=== PATIENT | male | born 1980 | race Native Hawaiian/Other Pacific Islander ===

== ENCOUNTER 2018-10-10 09:10 | Emergency (ER) | payer OTHER ==
[~2018-10-10] VITALS: Ht 188 cm; Wt 113.4 kg
[2018-10-10] MEDS ORDERED: AMOXICILLIN 50500 MG PO (09:43)
[2018-10-10 09:52] VITALS: BP 112/84
== END 2018-10-10 09:52 | disposition home or self-care (01) ==
LOC: M.ERS 09:10
DX: J32.0 Chronic maxillary sinusitis (principal); J32.1 Chronic frontal sinusitis

== ENCOUNTER 2019-09-14 21:45 | Emergency (ER) | payer OTHER ==
[~2019-09-14] VITALS: Ht 188 cm; Wt 117.9 kg
[~2019-09-14 21:45] MED LIST: AMOXICILLIN 50500 MG PO
[2019-09-14] MEDS ORDERED: CLARITIN10 MG PO (21:56)
[2019-09-14] MEDS ORDERED: FLONASE 0.05%50 MCG NARES (21:56)
[2019-09-14] MEDS ORDERED: KEFLEX500 M1 PO (22:03)
[2019-09-14 22:45] VITALS: BP 141/70
== END 2019-09-14 22:46 | disposition home or self-care (01) ==
LOC: M.ERS 21:45
DX: S91.331A Puncture wound without foreign body, right foot, initial encounter (principal); W22.8XXA Striking against or struck by other objects, initial encounter; Y93.89 Activity, other specified; Y92.89 Other specified places as the place of occurrence of the external cause; Y99.8 Other external cause status

== ENCOUNTER 2020-04-21 11:26 | Inpatient (IN) | payer OTHER ==
[~2020-04-21] VITALS: Ht 188 cm; Wt 113.1 kg
[~2020-04-21 11:26] MED LIST changes: +CLARITIN10 MG PO; +FLONASE 0.05%50 MCG NARES; +KEFLEX500 M1 PO
[2020-04-21 11:39] VITALS: BP 147/99
[2020-04-21] MEDS ORDERED: PROBIOTIC1 EAC7 PO (11:48)
[2020-04-21 12:19] LABS: ABSOLUTE EOSINOPHILS 0.3 thou/uL (0.0-0.7); ABSOLUTE LYMPHOCYTES 1.2 thou/uL (0.8-5.3); ABSOLUTE MONOCYTES 0.7 thou/uL (0.0-1.2); ABSOLUTE NEUTROPHILS 7.2 thou/uL (1.6-8.1); BASOPHILS 0.5 %; EOSINOPHILS 3.2 %; HEMATOCRIT 42.4 % (42.0-52.0); HEMOGLOBIN 14.5 gm/dL (14.0-18.0); LYMPHOCYTES 12.4 %; MCH 28.9 pg (26.0-34.0); MCHC 34.2 g/dL (28.0-37.0); MCV 84.4 fL (80.0-100.0); MONOCYTES 7.9 %; MPV 8.4 fl. (7.2-11.1); NUCLEATED RBCS 0 /100WBC; PLATELET COUNT* 368 thou/uL (150-400); RBC 5.02 mil/uL (4.50-6.00); RDW-CV 13.3 % (10.5-14.5); WBC 9.4 thou/uL (4.0-11.0)
[2020-04-21 12:26] LABS: CALCIUM 7.9 mg/dL (8.5-10.1); POTASSIUM 3.3 mmol/L (3.5-5.1)
[2020-04-21 12:29] LABS: APTT 27.2 Seconds (25.0-31.3); INR 1.1; PROTIME 11.4 Seconds (9.20-11.50)
[2020-04-21 12:37] LABS: ALBUMIN 2.5 g/dL (3.4-5.0); TOTAL BILIRUBIN 2.3 mg/dL (<0.1-1.0); TOTAL PROTEIN 7.9 g/dL (6.4-8.2)
[2020-04-21 13:22] LABS: BE 1.8 mmol/L (-2 to +3); PCO2 34.9 mmHg (35.0-45.0); PO2 120.3 mmHg (75.0-100.0); pH 7.472 (7.340-7.450)
--- NOTE | 2020-04-21 14:52 | EKG ---
[place] [address] ELECTROCARDIOGRAM REPORT Name: MARCO GARDINER ESTELITA Room: [facility]7 ADM IN 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: : 1980 Requested By: Ronan Otero Order Number: [id number] MD: Victor M Lizarraga Measurements Intervals [place] Rate: 103 P: 32 OK: 148 QRS: 29 QRSD: 100 T: 10 QT: 368 QTc: 482 Interpretive Statements Sinus tachycardia Borderline T abnormalities, anterior leads Borderline prolonged QT interval Baseline wander in lead(s) V1,V6 No previous ECG available for comparison Electronically Signed On 04-21-2020 14:52:24 [employer] by Victor M Lizarraga [email or web address] <ELECTRONICALLY SIGNED> By: Victor M Lizarraga MD, [facility] 04/21/20 1452 1156 1156 Victor M Lizarraga MD, [facility] /EPI
[2020-04-21 15:47] VITALS: BP 132/92
[2020-04-21] MEDS ORDERED: MELOXICAM15 MG PO (16:02)
[2020-04-21] MEDS ORDERED: IPRATROPIU0.2 MG/1 M INH (16:02)
[2020-04-21] MEDS ORDERED: AUGMENTIN 875-1 EACH PO (16:03)
[2020-04-21 16:17] VITALS: BP 150/93
[2020-04-21 17:05] LABS: INFLUENZA A ANTIGEN Negative (Negative); INFLUENZA B ANTIGEN Negative (Negative)
[2020-04-21 20:41] VITALS: BP 140/94
[2020-04-22] VITALS: BP 133/91
[2020-04-22 04:00] VITALS: BP 170/102
[2020-04-22 05:12] LABS: ABSOLUTE LYMPHOCYTES 1.3 thou/uL (0.8-5.3); ABSOLUTE MONOCYTES 0.6 thou/uL (0.0-1.2); ABSOLUTE NEUTROPHILS 7.1 thou/uL (1.6-8.1); BASOPHILS 0.1 %; EOSINOPHILS 0.1 %; HEMATOCRIT 40.3 % (42.0-52.0); HEMOGLOBIN 13.7 gm/dL (14.0-18.0); LYMPHOCYTES 14.8 %; MCH 28.8 pg (26.0-34.0); MCHC 34.1 g/dL (28.0-37.0); MCV 84.4 fL (80.0-100.0); MONOCYTES 6.6 %; MPV 8.4 fl. (7.2-11.1); NUCLEATED RBCS 0 /100WBC; PLATELET COUNT* 390 thou/uL (150-400); POLYS 78.4 %; RBC 4.77 mil/uL (4.50-6.00); RDW-CV 13.5 % (10.5-14.5); WBC 9.1 thou/uL (4.0-11.0)
[2020-04-22 05:44] LABS: ALBUMIN 2.2 g/dL (3.4-5.0); CALCIUM 7.9 mg/dL (8.5-10.1); CREATININE 0.8 mg/dL (0.6-1.3); MAGNESIUM 2.5 mg/dL (1.8-2.4); PHOSPHORUS* 3.8 mg/dL (2.5-4.9); TOTAL BILIRUBIN 1.5 mg/dL (<0.1-1.0); TOTAL PROTEIN 7.5 g/dL (6.4-8.2)
[2020-04-22 08:02] VITALS: BP 141/96
[2020-04-22 13:08] VITALS: BP 145/87
[2020-04-22 19:30] VITALS: BP 135/79
[2020-04-22 21:00] VITALS: BP 149/90
[2020-04-23] VITALS (7 sets, daily range): BP systolic 119–142; BP diastolic 67–93
[2020-04-23 05:03] LABS: HEMATOCRIT 40.4 % (42.0-52.0); HEMOGLOBIN 13.6 gm/dL (14.0-18.0); MCH 28.9 pg (26.0-34.0); MCHC 33.6 g/dL (28.0-37.0); MCV 85.9 fL (80.0-100.0); MPV 8.8 fl. (7.2-11.1); RBC 4.71 mil/uL (4.50-6.00); RDW-CV 13.2 % (10.5-14.5); WBC 11.4 thou/uL (4.0-11.0)
[2020-04-23 05:14] LABS: INR 1.1; PROTIME 11.7 Seconds (9.20-11.50)
[2020-04-23 05:24] LABS: ALBUMIN 2.3 g/dL (3.4-5.0); CREATININE 0.8 mg/dL (0.6-1.3); MAGNESIUM 2.6 mg/dL (1.8-2.4); POTASSIUM 4.3 mmol/L (3.5-5.1); TOTAL BILIRUBIN 0.9 mg/dL (<0.1-1.0); TOTAL PROTEIN 7.3 g/dL (6.4-8.2)
[2020-04-23 05:34] LABS: APTT 80.6 Seconds (25.0-31.3)
[2020-04-24 04:00] VITALS: BP 132/89
[2020-04-24 04:47] LABS: HEMATOCRIT 41.2 % (42.0-52.0); HEMOGLOBIN 14.1 gm/dL (14.0-18.0); MCHC 34.1 g/dL (28.0-37.0); MPV 8.4 fl. (7.2-11.1); RBC 4.85 mil/uL (4.50-6.00); RDW-CV 13.2 % (10.5-14.5); WBC 9.4 thou/uL (4.0-11.0)
[2020-04-24 05:17] LABS: ALBUMIN 2.6 g/dL (3.4-5.0); CALCIUM 8.4 mg/dL (8.5-10.1); CREATININE 0.9 mg/dL (0.6-1.3); MAGNESIUM 2.5 mg/dL (1.8-2.4); POTASSIUM 4.3 mmol/L (3.5-5.1); TOTAL BILIRUBIN 0.9 mg/dL (<0.1-1.0); TOTAL PROTEIN 7.7 g/dL (6.4-8.2)
[2020-04-24 07:44] VITALS: BP 147/96
[2020-04-24 11:30] VITALS: BP 130/79
[2020-04-24 16:00] VITALS: BP 125/78
[2020-04-25] VITALS: BP 133/88
[2020-04-25 00:08] VITALS: BP 134/63
[2020-04-25 05:59] VITALS: BP 116/74
[2020-04-25 07:06] LABS: HEMATOCRIT 42.3 % (42.0-52.0); HEMOGLOBIN 14.5 gm/dL (14.0-18.0); MCHC 34.2 g/dL (28.0-37.0); MCV 84.7 fL (80.0-100.0); MPV 8.2 fl. (7.2-11.1); RDW-CV 13.1 % (10.5-14.5); WBC 7.8 thou/uL (4.0-11.0)
[2020-04-25 07:38] LABS: CALCIUM 8.8 mg/dL (8.5-10.1); CREATININE 1.1 mg/dL (0.6-1.3); MAGNESIUM 2.6 mg/dL (1.8-2.4); POTASSIUM 4.2 mmol/L (3.5-5.1)
[2020-04-25] MEDS ORDERED: CEFDINIR300 MG PO (08:58)
[2020-04-25] MEDS ORDERED: PREDNISONE 10 M10 M1 PO (08:58)
[2020-04-25] MEDS ORDERED: ELIQUIS5 MG PO (08:58)
[2020-04-25 12:04] VITALS: BP 130/75
[2020-04-25 14:33] VITALS: BP 130/75
--- NOTE | 2020-04-25 14:50 | CON ---
[address] [address] CONSULTATION Name: MARCO GARDINER Room: [address] IN .R.#: [id number] Admission: 04/21/20 Attend Phys: Shahid Almonte, Discharge: Date of : 84 Report #: [id number] THIS REPORT FOR: cc: YUNIOR ESCOBAR KEVIN ~ Pervez, Adeel MD DATE OF SERVICE: 04/21/2020 CONSULTATION REQUESTED BY: Shahid Almonte MD INDICATION FOR CONSULTATION: Acute respiratory failure and hypoxemic. HISTORY OF PRESENT ILLNESS: This is a 39 years old gentleman; past medical history includes a history of bronchial asthma as well as allergic rhinitis. The patient has no known history of smoking. The patient has now been sick since the beginning of April. He has been having increasing shortness of breath. The patient, according to the admission H and P, was tested for COVID-19 and was positive on 04/14/2020. The patient had been monitoring his O2 saturations at home and states that these dropped to the mid 80s, which is the reason that he eventually came to the Emergency Room. He also has had cough; there is not much sputum; there is no chest pain. He has had significant chills. He did not record a fever at home. He says he has had upper respiratory complaints, including nasal congestion and headaches. He says that he felt that he had respiratory distress earlier and was wheezing. He, while not having chest pain at this time, did previously have pain with respirations. REVIEW OF SYSTEMS: For 12 points is negative except as mentioned above. PAST MEDICAL HISTORY: Bronchial asthma, hernia surgery, hypertension, sinusitis, allergic rhinitis. CURRENT MEDICATIONS: List in [employer], reviewed. HOME MEDICATIONS: List in [employer], reviewed. Note that he received either amoxicillin or Augmentin recently at home. FAMILY HISTORY: No known family history. ALLERGIES: HE HAS SEASONAL ALLERGIES. There are no known drug allergies. PHYSICAL EXAMINATION: GENERAL: He was alert, awake and oriented; does not appear to be in any distress; however, he is saturating 93% and has been on 3.5-4 liters of oxygen. Note that the patient had an O2 saturation initially recorded at 80% [place] [address] CONSULTATION Name: LAURENKVNGKAYLEEMARCO Room: [address] IN [facility]#: [id number] Admission: 04/21/20 Attend Phys: Shahid Almonte, Discharge: Date of : 84 Report #: [id number] air. He previously has not been on supplemental oxygen at home. VITAL SIGNS: He has a pulse of 82 and a blood pressure of 140/94. His respiratory rate is 16. His temperature is 37.1. He has been afebrile since admission. HEENT: Head is normocephalic and atraumatic. NECK: Does not show raised JVP. CHEST: Clear to auscultation. HEART: Regular, no murmur. ABDOMEN: Soft and nontender. EXTREMITIES: Lower extremities: No edema and no calf tenderness. LABORATORY DATA: The patient's CTA chest does show nonocclusive peripheral pulmonary emboli in addition to extensive infiltrates consistent with COVID-19 pneumonia. There is some fatty liver as well. [facility] and this is reviewed. Note that the patient's COVID-19 antigen is negative, but he is reported to have tested positive at home. ASSESSMENT AND PLAN: 1. Acute hypoxemic respiratory failure secondary to COVID-19. Recommend watching the patient closely and titrating oxygen as below. I am starting him on steroids as well as schedule albuterol. He has a history of bronchial asthma and therefore if he worsens, I recommend having a low threshold of moving him to the COVID area, so that he could be started on nebulized bronchodilators. 2. COVID-19. The patient is reported to have had a positive test outpatient on 04/14/2020. Therefore, I agree with dexamethasone. In fact, I increased the dose. His LFTs are elevated, so still the potential benefit of giving him remdesivir appears to outweigh risks, and therefore, I started the remdesivir as well. Note that his LFTs will need to be watched closely while he is on remdesivir. Should they continue to rise, we may need to discontinue remdesivir. I will also go ahead and give him 1 unit of convalescent plasma tonight. I recommend reevaluating; if he is not significantly better, I recommend giving him 1 more unit of convalescent plasma tomorrow morning. 3. Pulmonary infiltrates. Certainly he may have a secondary bacterial infection as well. Therefore, I agree with broad-spectrum antibiotics as currently ordered. Various cultures and serologies are ordered. 4. Bronchial asthma and allergic rhinitis. He did not appear to be actively bronchospastic. Still if he is not better by tomorrow morning, then I suggest considering moving him to the COVID area, so that he could be given nebulized bronchodilators. 5. Acute pulmonary emboli. He is on IV heparin drip. This could be switched over to full-dose Lovenox soon. We will plan a repeat CTA chest in 3 months for followup. 6. Mild rhabdomyolysis. There is elevation in CPK. The patient's BUN, however, is on the lower side and creatinine is normal. ProBNP is not elevated. [address] [address] CONSULTATION Name: MARCO GARDINER Room: [address] IN .R.#: [id number] Admission: 04/21/20 Attend Phys: Shahid Almonte, Discharge: Date of : 84 Report #: [id number] We will need to watch his fluid status closely. I did cautiously order 1 liter of normal saline at 50 as the CPK is elevated. Watch his O2 saturations and CPK. If his O2 saturations worsen, discontinue IV fluids and consider giving him Lasix. 7. Elevated liver function tests. Discussion as above. He is on remdesivir. Watch LFTs closely. Thanks for this consultation. <ELECTRONICALLY SIGNED> By: Darryl Rangel MD 04/25/20 1450 2212 [id number] Rangel MD /nt
[2020-04-25 15:53] VITALS: BP 130/75
== END 2020-04-25 18:26 | disposition home health service (06) | DRG 177 ==
LOC: M.ERS 11:26 → M.TBA-ER 12:58 → M.ORTHSURG 12:58
PROVIDERS: Family Medicine; Internal Medicine; Internal Medicine Critical Care Medicine; Physician Assistant; ADMIT Family Medicine; ATTEND Family Medicine
PROC: XW033E5 Introduction of Remdesivir Anti-infective into Peripheral Vein, Percutaneous Approach, New Technology Group 5 (ICD-10-PCS; 2020-04-21)
PROC: XW13325 Transfusion of Convalescent Plasma (Nonautologous) into Peripheral Vein, Percutaneous Approach, New Technology Group 5 (ICD-10-PCS; principal; 2020-04-23)
DX: U07.1 COVID-19 (principal); J12.89 Other viral pneumonia; J96.01 Acute respiratory failure with hypoxia; I26.99 Other pulmonary embolism without acute cor pulmonale; M62.82 Rhabdomyolysis; K76.0 Fatty (change of) liver, not elsewhere classified; E66.01 Morbid (severe) obesity due to excess calories; E87.6 Hypokalemia; I10 Essential (primary) hypertension; Z79.899 Other long term (current) drug therapy; Z68.32 Body mass index [BMI] 32.0-32.9, adult; Z23 Encounter for immunization

== ENCOUNTER 2021-03-15 01:41 | Emergency (ER) | payer OTHER ==
[~2021-03-15] VITALS: Ht 188 cm; Wt 113.4 kg
[~2021-03-15 01:41] MED LIST changes: +AUGMENTIN 875-1 EACH PO; +CEFDINIR300 MG PO; +ELIQUIS5 MG PO; +IPRATROPIU0.2 MG/1 M INH; +MELOXICAM15 MG PO; +PREDNISONE 10 M10 M1 PO; +PROBIOTIC1 EAC7 PO
[2021-03-15 04:38] LABS: ABSOLUTE EOSINOPHILS 0.2 thou/uL (0.0-0.7); ABSOLUTE LYMPHOCYTES 2.3 thou/uL (0.8-5.3); ABSOLUTE MONOCYTES 0.5 thou/uL (0.0-1.2); ABSOLUTE NEUTROPHILS 7.3 thou/uL (1.6-8.1); BASOPHILS 0.4 %; EOSINOPHILS 1.5 %; HEMATOCRIT 39.4 % (42.0-52.0); HEMOGLOBIN 13.5 gm/dL (14.0-18.0); LYMPHOCYTES 22.5 %; MCH 28.6 pg (26.0-34.0); MCHC 34.2 g/dL (28.0-37.0); MCV 83.5 fL (80.0-100.0); MONOCYTES 5.2 %; MPV 8.2 fl. (7.2-11.1); NUCLEATED RBCS 0 /100WBC; PLATELET COUNT* 273 thou/uL (150-400); POLYS 70.4 %; RBC 4.72 mil/uL (4.50-6.00); WBC 10.3 thou/uL (4.0-11.0)
[2021-03-15 04:50] LABS: CALCIUM 8.5 mg/dL (8.5-10.1); CREATININE 1.1 mg/dL (0.6-1.3); POTASSIUM 3.8 mmol/L (3.5-5.1)
[2021-03-15 07:52] VITALS: BP 126/80
== END 2021-03-15 07:51 | disposition home or self-care (01) ==
LOC: M.ERS 01:41
PROVIDERS: Emergency Medicine
DX: R04.0 Epistaxis (principal); Z20.822 Contact with and (suspected) exposure to COVID-19; I10 Essential (primary) hypertension; J45.909 Unspecified asthma, uncomplicated